=== PATIENT | male | born 1965 | race Caucasian/White ===

== ENCOUNTER 2021-07-14 05:27 | Emergency (ER) | payer OTHER, SELFPAY ==
[2021-07-14] VITALS (51 sets, daily range): BP systolic 101–133; BP diastolic 74–96; PULSE 109–183; RESP 13–27; TEMP 37.1; O2SAT 91–98
--- NOTE | ~2021-07-14 | CT_ITS ---
EXAMINATION: CTA chest PE protocol DATE: 07/14/2021 06:50 INDICATION: Chest pain TECHNIQUE: Computed tomography angiography (CTA) of the chest was performed with 100 mL Omnipaque-350 intravenous contrast timed to evaluate the pulmonary arteries. Coronal maximum intensity projection 3D-reconstructions were created by the technologist. Automated exposure control and iterative reconst ruction technique were employed. Exam dose: 609.00 mGy-cm total exam DLP. COMPARISON: 07/14/2021 portable AP chest at 0544 hours FINDINGS: There is diagnostic contrast enhancement of the pulmonary arteries and no evidence of pulmo nary embolism. No thoracic aortic aneurysm or dissection. Heart size is within normal range. No pericardial or pleur al effusion. No hilar or mediastinal mass lesion or lymphadenopathy. Normal morphology of the adrenal glands. There are patchy groundglass infiltrates of both lower lobes. This is mild discoid atelectasis or sca rring of the middle lobe and lingula. Degenerative disc disease at C5-6 and C6-7. No suspicious osteolytic or osteoblastic lesions. IMPRESSION: No evidence of pulmonary embolism Bilateral lower lobe patchy groundglass infiltrates suggesting bilateral pneumonia or aspiration pneu monitis Reviewed, dictated and finalized at [facility]. Reviewed, dictated and finalized at [facility]. NESS INITIATIVES MANAGER IMPRESSION: No evidence of pulmonary embolism Bilateral lower lobe patchy groundglass infiltrates suggesting bilateral pneumo roderick or aspiration pneumonitis
--- NOTE | ~2021-07-14 | XR_ITS ---
XR chest 1V portable DATE: 07/14/2021 05:59 INDICATION: Chest pain TECHNIQUE: Portable AP chest on 07/2021 at 0549 hours COMPARISON: None FINDINGS: residential monitor device overlies the left chest. Normal heart size. No pleural effusion or pulmonary vascular congestion or pneumothorax. Patchy infiltrate and/atelectasis is suggested in the lower lungs, left greater than right. IMPRESSION: Mild patchy infiltrate in the lower lungs, left greater than right Reviewed, dictated and finalized at location [facility]. MECHANIC
--- NOTE | 2021-07-14 05:33 | ECG_ITS ---
Measurements Intervals [place] Rate: 170 P: [place]: 0 QRS: 17 QRSD: 91 T: 19 QT: 235 QTc: 396 Interpretive Statements ATRIAL FIBRILLATION WITH RAPID VENTRICULAR RESPONSE NONSPECIFIC T-WAVE ABNORMALITY ABNORMAL ECG Electronically Signed On 07-14-2021 10:33:40 BASS FISHER by Ayo Quiroz M.D.
[2021-07-14] MEDS: dilTIAZem 100 MG/100 ML 100 MG/100 ML BAG IV CONT (05:35)
[2021-07-14] MEDS: dilTIAZem HCl INJ 25 MG/5 ML VIAL (05:36)
[2021-07-14] MEDS: fentaNYL CITRATE INJ (*CRX) 100 MCG/2 ML VIAL 50 MCG IV PUSH (05:42)
[2021-07-14 05:48] LABS: Basophils Percent Auto 0.4 % (0.2-1.2); Eosinophils Absolute Auto 0.1 K/mm3 (0-0.3); Eosinophils Percent Auto 1.2 % (0-4.4); Hematocrit 47.2 % (42.0-52.0); Hemoglobin 16.9 g/dL (14.0-18.0); Immature Granulocyte Absolute 0.04 K/mm3 (0.00-0.031); Immature Granulocyte Percent A 0.4 % (0-0.5); Lymphocytes Absolute Auto 1.77 K/mm3 (0.9-3.2); Lymphocytes Percent Auto 15.7 % (18.3-44.2); Mean Corpuscular HGB Conc 35.8 g/dl (32-36); Mean Corpuscular Hemoglobin 34.6 pg (26-34); Mean Corpuscular Volume 96.5 fl (80-100); Mean Platelet Volume 9.9 fl (7.4-10.4); Monocytes Percent Auto 8.5 % (2.6-8.5); Neutrophils Absolute Auto 8.4 K/mm3 (1.3-6.7); Neutrophils Percent Auto 73.8 % (45.5-73.1); Platelet Count Result 154 k/mm3 (150-375); Red Blood Count 4.89 M/mm3 (4.6-6.20); Red Cell Distribution Width 12.7 % (11.5-14.5); White Blood Count 11.3 K/mm3 (4.5-10.0)
[2021-07-14 05:58] LABS: Alanine Aminotransferase 18 U/L (4-50); Albumin Level 4.3 g/dL (3.5-5.1); Alkaline Phosphatase 77 U/L (38-126); Anion Gap 9 mmol/L (8-16); Aspartate Amino Transferase 25 U/L (17-59); Bilirubin,Total 0.9 mg/dL (0.2-1.3); Blood Urea Nitrogen 10 mg/dL (9-20); Calcium 8.1 mg/dL (8.4-10.2); Carbon Dioxide 26 mmol/L (22-30); Chloride 103 mmol/L (98-107); Estimated CRCL calculation 142 ml/min; Estimated Glomerular Filt Rate > 60; Glucose 154 mg/dL (65-110); INR 1.2; Potassium 3.9 mmol/L (3.4-5.0); Prothrombin Time 14.3 Seconds (11.1-14.7); Sodium 138 mmol/L (137-145)
[2021-07-14 05:59] LABS: Partial Thromboplastin Time 33.2 SECONDS (22.3-36.8)
[2021-07-14 06:10] LABS: NT Pro B Type Natriuretic Pept 330 pg/mL (5-100); Troponin I < 0.012 ng/mL (0.000-0.034)
--- NOTE | 2021-07-14 06:25 | ED.ARRPALP ---
HPI - Arrhythmia/Palpitations General Chief Complaint: Arrhythmia/Palpitations <Federico Florentino MD - Last Filed: 07/14/21 06:36> Stated Complaint: VARIABLE AFIB WITH VENTRIC RESPONSE <Federico Florentino MD - Last Filed: 07/14/21 06:36> Time Seen by Provider: 07/14/21 05:27 <Federico Florentino MD - Last Filed: 07/14/21 06:36> History of Present Illness HPI narrative: Patient is a 56-year-old male who presents to the ER with palpitations and chest pain. Patient reports 1 hour prior to arrival he started developing central chest pain. Feels like a cannonball is going off and is chest. Worse with deep breath. Denies shortness of breath. He endorses palpitations and racing heart. Has history of atrial fibrillation and has undergone ablation procedure in the past. He follows with cardiology at the [facility]. No history of myocardial infarction. Patient reports compliance with home Eliquis. <Federico Florentino MD - Last Filed: 07/14/21 06:36> Related Data Home Medications: Home Medications Medication Instructions Recorded Confirmed apixaban [Eliquis] mg 07/14/21 <Federico Florentino MD - Last Filed: 07/14/21 06:36> Allergies/Adverse Reactions: Allergies Allergy/AdvReac Type Severity Reaction Status Date / Time Penicillins Allergy Severe Anaphylactic Verified 07/06/18 15:11 Shock <Federico Florentino MD - Last Filed: 07/14/21 06:36> Review of Systems Review of Systems: All systems reviewed & are unremarkable except as noted in HPI and below <Federico Florentino MD - Last Filed: 07/14/21 06:36> Constitutional: Constitutional: Denies chills, Denies fever(s) and Denies weakness <Federico Florentino MD - Last Filed: 07/14/21 06:36> ENT: Denies nasal congestion and Denies sore throat <Federico Florentino MD - Last Filed: 07/14/21 06:36> Cardiovascular: Cardiovascular: Reports chest pain, Reports rapid heart rate and Denies radiating jaw, neck or arm pain <Federico Florentino MD - Last Filed: 07/14/21 06:36> Respiratory: Respiratory: Denies cough, Denies dyspnea and Denies wheezing <Federico Florentino MD - Last Filed: 07/14/21 06:36> Comments: Pain with deep breath <Federico Florentino MD - Last Filed: 07/14/21 06:36> Gastrointestinal: Gastrointestinal: Denies abdominal pain, Denies nausea and Denies vomiting <Federico Florentino MD - Last Filed: 07/14/21 06:36> Musculoskeletal: Musculoskeletal: Denies back pain and Denies muscle cramps <Federico Florentino MD - Last Filed: 07/14/21 06:36> PMFSH Past Medical History Medical History: Medical History (Updated 07/14/21 @ 17:38 by Jeannette Zambrano MD) Atrial fibrillation Bipolar disorder Hypertension <Federico Florentino MD - Last Filed: 07/14/21 06:36> Surgical History Surgical History: Surgical History (Updated 07/14/21 @ 06:35 by Federico Florentino MD) History of cardiac radiofrequency ablation <Federico Florentino MD - Last Filed: 07/14/21 06:36> Social History Social History: Social History (Updated 07/14/21 @ 06:35 by Federico Florentino MD) Alcohol use details: History of alcohol abuse drinking 1 case a day. <Federico Florentino MD - Last Filed: 07/14/21 06:36> Exam Narrative: GENERAL: Uncomfortable-appearing, well-nourished, and in no acute distress. HEAD: Normocephalic, atraumatic. EYES: PERRL and EOMI. ENT: Mucous membranes moist. CHEST: Clear to auscultation. No respiratory distress. HEART: Tachycardic and irregular regular. Normal peripheral pulses. ABDOMEN: Soft, nontender, nondistended. EXTREMITIES: Normal range of motion. No edema. SKIN: Warm, dry, no rash. NEURO: Alert and oriented x3. PSYCH: Normal mood and affect. <Federico Florentino MD - Last Filed: 07/14/21 06:36> Course Reevaluation(s) Reevaluation #1: Patient had a sinus pause with what appeared to be him trying to convert into normal sinus rhythm before going back into A. fib with RVR. Will obta
[2021-07-14] MEDS: MORPHINE SULFATE INJ (*CRX) 10 MG/ML AMP 4 MG IV PUSH (07:03)
[2021-07-14 07:19] LABS: SARS-CoV-2 RNA PCR Negative
--- NOTE | 2021-07-14 07:19 | PC.NURSE ---
Patient report received from SAIMA Pat. All questions answered and care of patient assumed. Patient currently complaining of 10/10 pain. Patient received IV Morphine 15 minutes ago. Will continue to reassess pain. IV diltiazem infusing at 15 mls/hr. Patient remains in atrial fib with HR currently 110-140s.
--- NOTE | 2021-07-14 07:53 | PC.NURSE ---
Dr. Zambrano at bedside to assess patient.
--- NOTE | 2021-07-14 07:58 | PC.NURSE ---
Pt does not know home meds and doesn't have list. Attempted to call mother and there is no answer.
[2021-07-14] MEDS: ALBUTEROL SULFATE (*SP) AEROSOL 1 PUFF 4 PUFF INHALATION (08:12)
--- NOTE | 2021-07-14 08:15 | PC.NURSE ---
Respiratory at bedside to administer Albuterol inhaler.
--- NOTE | 2021-07-14 09:17 | PC.NURSE ---
Blood cultures obtained and sent to lab for processing.
[2021-07-14 09:21] LABS: Troponin I < 0.012 ng/mL (0.000-0.034)
--- NOTE | 2021-07-14 10:39 | PC.NURSE ---
[facility] accepted transfer to [facility] ETA 12p (noon) Trip # [phone]
[2021-07-14 12:10] LABS: Troponin I < 0.012 ng/mL (0.000-0.034)
[2021-07-14] MEDS: dilTIAZem 100 MG/100 ML 100 MG/100 ML BAG 15 MG IV CONT (12:39)
--- NOTE | 2021-07-14 12:53 | PC.NURSE ---
Patient report provided to [facility] paramedics. Patient placed on stretcher on cardiac monitor technician and transported to [facility] room 610.
== END 2021-07-14 12:55 | disposition short-term general hospital (02) ==
PROVIDERS: Emergency Medicine; Emergency Provider General Practice
DX: I48.91 Unspecified atrial fibrillation (principal); J69.0 Pneumonitis due to inhalation of food and vomit; R07.9 Chest pain, unspecified; Z20.822 Contact with and (suspected) exposure to COVID-19; I10 Essential (primary) hypertension; Z79.01 Long term (current) use of anticoagulants
CPT/HCPCS: 36415; 71045; 71275; 80053; 83880; 84484; 85025; 85610; 85730; 87040; 93005; 96365; 96366; 96367; 96368; 96375; 99285; A9270; C9803; J0131; J1956; J2270; J3010; Q9967; U0003; U0005

== ENCOUNTER 2021-11-28 18:42 | Emergency (ER) | payer OTHER, SELFPAY ==
[2021-11-28] VITALS (35 sets, daily range): BP systolic 118–153; BP diastolic 68–81; PULSE 54–88; RESP 13–25; O2SAT 94–100
--- NOTE | ~2021-11-28 | XR_ITS ---
EXAMINATION: XR chest 1V portable Exam Date/Time: 11/28/2021 18:50 CDT HISTORY: afib, life vest, shocked Comparison: 07/14/2021. RESULT: Lines, tubes, and devices: Loop recorder. Lungs and pleura: Diffuse reticular nodular opacities may reflect bronchiolitis. Cardiomediastinal silhouette: Stable cardiomediastinal silhouette. Other: No acute osseous or upper abdominal finding. IMPRESSION: Pulmonary opacities may represent bronchiolitis, as can be seen with atypical infection, asthma, aspi ration, and small airways disease. Reviewed, dictated and finalized at location [facility]. IMPRESSION: Pulmonary opacities may represent bronchiolitis, as can be seen with atypical i nfection, asthma, aspiration, and small airways disease.
--- NOTE | 2021-11-28 18:47 | ECG_ITS ---
Measurements Intervals [place] Rate: 103 P: 210 [place]: 85 QRS: 35 QRSD: 93 T: 52 QT: 329 QTc: 432 Interpretive Statements SINUS TACHYCARDIA ATRIAL TRIPLETS AND ATRIAL PREMATURE COMPLEXES BASELINE ARTIFACT- I, II, III, AVR, AVF, V4-V6 ABNORMAL ECG Electronically Signed On 11-28-2021 19:32:00 CDT by Bob Mccormick D.O.
[2021-11-28 19:11] LABS: Basophils Percent Auto 0.5 % (0.2-1.2); Eosinophils Absolute Auto 0.1 K/mm3 (0-0.3); Eosinophils Percent Auto 1.3 % (0-4.4); Hematocrit 47.7 % (42.0-52.0); Hemoglobin 17.1 g/dL (14.0-18.0); Immature Platelet Fraction Pct 5.6 % (0.9-11.2); Lymphocytes Absolute Auto 1.78 K/mm3 (0.9-3.2); Lymphocytes Percent Auto 29.7 % (18.3-44.2); Mean Corpuscular HGB Conc 35.8 g/dl (32-36); Mean Corpuscular Hemoglobin 33.7 pg (26-34); Mean Corpuscular Volume 93.9 fl (80-100); Mean Platelet Volume 11.2 fl (7.4-10.4); Monocytes Absolute Auto 0.6 K/mm3 (0.1-0.6); Monocytes Percent Auto 10.4 % (2.6-8.5); Neutrophils Absolute Auto 3.5 K/mm3 (1.3-6.7); Neutrophils Percent Auto 58.1 % (45.5-73.1); Platelet Count Result 134 k/mm3 (150-375); Red Blood Count 5.08 M/mm3 (4.6-6.20); Red Cell Distribution Width 12.7 % (11.5-14.5)
[2021-11-28 19:18] LABS: Alkaline Phosphatase 95 U/L (38-126); Anion Gap 14 mmol/L (8-16); Aspartate Amino Transferase 22 U/L (17-59); Bilirubin,Total 0.8 mg/dL (0.2-1.3); Blood Urea Nitrogen 18 mg/dL (9-20); Calcium 9.2 mg/dL (8.4-10.2); Carbon Dioxide 20 mmol/L (22-30); Chloride 105 mmol/L (98-107); Estimated CRCL calculation 100 ml/min; Estimated Glomerular Filt Rate > 60; Glucose 147 mg/dL (65-110); Lipase 109 U/L (23-300); Potassium 3.4 mmol/L (3.4-5.0); Sodium 139 mmol/L (137-145)
[2021-11-28 19:20] LABS: INR 1.1; Prothrombin Time 13.6 Seconds (11.1-14.7)
[2021-11-28 19:21] LABS: Partial Thromboplastin Time 32.2 SECONDS (22.3-36.8)
[2021-11-28 19:24] LABS: Alanine Aminotransferase 32 U/L (6-50)
[2021-11-28 19:28] LABS: Troponin I < 0.012 ng/mL (0.000-0.034)
[2021-11-28] MEDS: HYDROmorphone HCL INJ (*CRX) 1 MG/ML SYR IV PUSH (19:30)
[2021-11-28 19:46] LABS: Thyroid Stimulating Hormone 0.286 uIU/mL (0.465-4.680)
--- NOTE | 2021-11-28 19:47 | ED.GENADULT ---
HPI - General Adult General Chief complaint: Arrhythmia/Palpitations Stated complaint: LIFE VEST SHOCK/AFIB W RVR Time Seen by Provider: 11/28/21 19:09 History of Present Illness HPI narrative: Patient 56-year-old gentleman who presents the emergency department with chief complaint of dysrhythmia. Patient reports that he had an ablation for atrial fibrillation at the [place] and today had 3 episodes where his LifeVest shocked him. The patient states that he still has pain in his chest after the defibrillator shocked him the patient states that now his heart rate feels like it is back to normal. Patient states he took a metoprolol after he was not converting between shocks reports that he is not on any amiodarone digoxin or calcium channel isai. 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 Nursing and ancillary documentation was reviewed. [facility] Past Medical History Medical History Atrial fibrillation Bipolar disorder Hypertension Surgical History Surgical History History of cardiac radiofrequency ablation Social History Social History Alcohol use details: History of alcohol abuse drinking 1 case a day. Exam Narrative: GENERAL: Well-appearing, well-nourished, and in no acute distress. HEAD: Normocephalic, atraumatic. EYES: PERRLA and EOMI. ENT: Nares clear, no rhinorrhea or epistaxis. Mucous membranes moist. NECK: Supple. CHEST: Clear to auscultation. No respiratory distress. HEART: Regular rate and rhythm. No murmur heard. Normal peripheral pulses. ABDOMEN: Soft, nontender, nondistended, normal active bowel sounds. EXTREMITIES: Normal range of motion. No edema. SKIN: Warm, dry, no rash. Jett from the defibrillator pads present on the chest wall NEURO: No focal deficits. Alert and oriented x3. PSYCH: Normal mood and affect. Course Course Emergency Course: EKG sinus tachycardia rate of 103 with an atrial triplet and atrial PACs Vital Signs Vital signs: Vital Signs Pulse Rate 88 11/28/21 18:46 Respiratory Rate 18 11/28/21 18:46 Blood Pressure 153/79 H 11/28/21 18:46 Pulse Oximetry 100 11/28/21 18:46 Pulse Rate 77 11/29/21 18:42 Respiratory Rate 20 11/29/21 15:32 Blood Pressure 141/81 H 11/29/21 15:32 Pulse Oximetry 98 11/29/21 15:32 Medical Decision Making Vital Signs Vital Signs: Vital Signs Pulse Rate 88 11/28/21 18:46 Respiratory Rate 18 11/28/21 18:46 Blood Pressure 153/79 H 11/28/21 18:46 Pulse Oximetry 100 11/28/21 18:46 Pulse Rate 77 11/29/21 18:42 Respiratory Rate 11/29/21 15:32 Blood Pressure 141/81 H 11/29/21 15:32 Pulse Oximetry 98 11/29/21 15:32 Lab Data Result diagrams: 11/28/21 19:00 11/28/21 19:00 Labs: Lab Results 11/28/21 11/28/21 11/28/21 Range/Units 19:00 19:00 19:00 WBC 6.0 (4.5-10.0) K/mm3 RBC 5.08 (4.6-6.20) M/mm3 Hgb 17.1 (14.0-18.0) g/dL Hct 47.7 (42.0-52.0) % MCV 93.9 (80-100) fl MCH 33.7 (26-34) pg MCHC 35.8 (32-36) g/dl RDW 12.7 (11.5-14.5) % Plt Count 134 L (150-375) k/mm3 MPV 11.2 H (7.4-10.4) fl Immature Gran % (Auto) 0.0 (0-0.5) % Neut % (Auto) 58.1 (45.5-73.1) % Lymph % (Auto) 29.7 (18.3-44.2) % Hale % (Auto) 10.4 H (2.6-8.5) % Eos % (Auto) 1.3 (0-4.
[2021-11-28 20:04] LABS: SARS-CoV-2 RNA PCR Negative
[2021-11-28] MEDS: KCL 20 MEQ/SW 100 ML 100 ML 50 MEQ IVPB (21:40)
[2021-11-28] MEDS: SODIUM CHLORIDE 0.9% IV 1,000 ML 100 ML IV CONT (22:03)
[2021-11-29] VITALS (100 sets, daily range): BP systolic 116–164; BP diastolic 63–85; PULSE 45–109; RESP 9–37; O2SAT 94–100
[2021-11-29] MEDS: LORazepam INJ (*CRX) 2 MG/ML VIAL 1 MG IV PUSH ×2 (01:04→18:45)
--- NOTE | 2021-11-29 01:08 | PC.NURSE ---
pt moved onto hospital bed due to not knowing when a bed at the [facility] will become available.
--- NOTE | 2021-11-29 07:13 | PC.NURSE ---
Assumed care of pt in room 6. Pt resting in bed at this time with no requests. Vitals stable at this time sinus destini.
--- NOTE | 2021-11-29 13:10 | PC.NURSE ---
patient is requesting flomax and dulcolax tab that he takes PRN at home. Dr. Hughes aware
[2021-11-29] MEDS: LORazepam (*CRX) 1 MG TABLET PO (13:19)
[2021-11-29] MEDS: TAMSULOSIN HCL 0.4 MG CAPSULE PO (13:22)
--- NOTE | 2021-11-29 15:13 | PC.NURSE ---
lita martinez customer engagement representative with [employer] called regarding patient's LifeVest.
--- NOTE | 2021-11-29 18:01 | PC.NURSE ---
[employer] customer field representative here to interrogate pt's device
[2021-11-29] MEDS: ASPIRIN 81 MG CHEWABLE TABLET PO (18:16)
--- NOTE | 2021-11-29 18:24 | PC.NURSE ---
lifevest being interrogated at this time from [employer]
[2021-11-29] MEDS: METOPROLOL TARTRATE 25 MG TABLET (18:42)
--- NOTE | 2021-11-29 19:16 | PC.NURSE ---
tressa with lifevest here and she has replaced his lifevest and it is working correctly
--- NOTE | 2021-11-29 20:40 | PC.NURSE ---
patient has loop recorder
[2021-11-29] MEDS: MELATONIN 5 MG TABLET PO (21:07)
[2021-11-29] MEDS: BISACODYL 5 MG TABLET EC PO (21:07)
[2021-11-29] MEDS: APIXABAN 5 MG TABLET PO (21:07)
--- NOTE | 2021-11-29 23:04 | PC.NURSE ---
called the following facilities for possible transfer. @2049- [facility] @[facility]- [facility] has a waitlist of a week or more @2101- [facility] has a 9 day waitlist @2103- [facility] not accepting @2141- [facility] accepting @[facility]36- [facility] - advised by Sylvie to call Utilization Review at 8 am
[2021-11-30] VITALS (30 sets, daily range): BP systolic 121–129; BP diastolic 81–84; PULSE 51–72; RESP 9–22; O2SAT 94–99
[2021-11-30] MEDS: LORazepam (*CRX) 1 MG TABLET PO (10:20)
[2021-11-30] MEDS: TAMSULOSIN HCL 0.4 MG CAPSULE PO (10:20)
[2021-11-30] MEDS: APIXABAN 5 MG TABLET PO (10:21)
[2021-11-30] MEDS: BISACODYL 5 MG TABLET EC PO (13:31)
[2021-11-30] MEDS: METOPROLOL TARTRATE 50 MG TAB 25 MG PO (14:16)
== END 2021-11-30 16:06 ==
PROVIDERS: Emergency Medicine; Physician Assistant; Emergency Provider General Practice
DX: R00.0 Tachycardia, unspecified (principal); I48.91 Unspecified atrial fibrillation; Z95.810 Presence of automatic (implantable) cardiac defibrillator; I10 Essential (primary) hypertension; Z79.01 Long term (current) use of anticoagulants; Z20.822 Contact with and (suspected) exposure to COVID-19; I49.1 Atrial premature depolarization
CPT/HCPCS: 36415; 71045; 80053; 83690; 83735; 84443; 84484; 85025; 85055; 85610; 85730; 93005; 96361; 96365; 96366; 96375; 96376; 99285; A9270; C9803; J1170; J2060; J3480; J7030; U0003; U0005

== ENCOUNTER 2022-08-11 21:30 | Emergency (ER) | payer OTHER, SELFPAY ==
[2022-08-11] VITALS (17 sets, daily range): BP systolic 124–139; BP diastolic 72–77; PULSE 59–67; RESP 16–22; TEMP 36.5; O2SAT 94–100
--- NOTE | ~2022-08-11 | XR_ITS ---
EXAMINATION: XR chest 2V DATE: 08/11/2022 22:59 INDICATION: Left chest pain. TECHNIQUE: Frontal and lateral views of the chest were obtained. COMPARISON: Chest single view 11/28/2021, chest CT 08/11/2022 FINDINGS: There is mild atelectasis at the lung bases. No pleural effusion or pneumothorax. Cardiomeg flower is noted. There is a left chest wall pacer with leads in the right atrium and right ventricle. Th ere is pneumatosis in hepatic flexure of the colon. IMPRESSION: 1. Cardiomegaly. 2. Pneumatosis in hepatic flexure of the colon. Reviewed, dictated and finalized at location [facility].
--- NOTE | ~2022-08-11 | CT_ITS ---
EXAMINATION: CTA chest PE protocol DATE: 08/11/2022 23:32 INDICATION: Chest pain. TECHNIQUE: Computed tomography angiography (CTA) of the chest was performed with 100 mL Omnipaque-350 intravenous contrast timed to evaluate the pulmonary arteries. Coronal maximum intensity projection 3D-reconstructions were created by the technologist. Automated exposure control and iterative reconst ruction technique were employed. The dose-length product was 700.61 mGy-cm. COMPARISON: Chest CT 07/14/2021 FINDINGS: The dominant lungs demonstrate mild atelectasis with a lower lung predominance. No pleural effusion. Cardiomegaly is noted. There are coronary artery calcifications. There is a small pericardi al effusion. There is a left chest wall pacer with leads in the right atrium and right ventricle. The re is no pulmonary embolus. There is pneumatosis involving hepatic flexure of the colon. There is mil d thoracic spondylosis. IMPRESSION: 1. No pulmonary embolus. 2. Small pericardial effusion, new from 07/14/2021. 2. Pneumatosis involving hepatic flexure of the colon, which may be a sign of infarct or ischemia. CT abdomen and pelvis with contrast is recommended. I called this result to Nanda Cortes, the ignacia ent's nurse at [facility]. Reviewed, dictated and finalized at location [facility]. IMPRESSION: 1. No pulmonary embolus. 2. Small pericardial effusion, new from 07/14/2021. 2. Pneumatosis involving hepatic flexure of the colon, which may be a sign of i nfarct or ischemia. CT abdomen and pelvis with contrast is recommended. I storm d this result to Nanda Cortes, the patient's nurse at [facility].
--- NOTE | 2022-08-11 21:32 | ECG_ITS ---
Measurements Intervals [place] Rate: 67 P: 31 NM: 227 QRS: -9 QRSD: 84 T: 27 QT: 379 QTc: 401 Interpretive Statements SINUS RHYTHM WITH FIRST DEGREE AV BLOCK LEFT ATRIAL ENLARGEMENT INFERIOR INFARCT, PROBABLY RECENT Electronically Signed On 08-12-2022 12:55:06 CDT by Herman Amaya M.D.
[2022-08-11 21:53] LABS: Basophils Percent Auto 0.3 % (0.2-1.2); Eosinophils Percent Auto 0.1 % (0-4.4); Hematocrit 47.8 % (42.0-52.0); Hemoglobin 16.6 g/dL (14.0-18.0); Immature Granulocyte Absolute 0.03 K/mm3 (0.00-0.031); Immature Granulocyte Percent A 0.3 % (0-0.5); Immature Platelet Fraction Pct 5.3 % (0.9-11.2); Lymphocytes Absolute Auto 0.77 K/mm3 (0.9-3.2); Lymphocytes Percent Auto 8.5 % (18.3-44.2); Mean Corpuscular HGB Conc 34.7 g/dl (32-36); Mean Corpuscular Hemoglobin 34.1 pg (26-34); Mean Corpuscular Volume 98.2 fl (80-100); Mean Platelet Volume 10.1 fl (7.4-10.4); Monocytes Absolute Auto 0.9 K/mm3 (0.1-0.6); Monocytes Percent Auto 9.7 % (2.6-8.5); Neutrophils Absolute Auto 7.4 K/mm3 (1.3-6.7); Neutrophils Percent Auto 81.1 % (45.5-73.1); Platelet Count Result 145 k/mm3 (150-375); Red Blood Count 4.87 M/mm3 (4.6-6.20); Red Cell Distribution Width 13.1 % (11.5-14.5); White Blood Count 9.1 K/mm3 (4.5-10.0)
[2022-08-11 22:02] LABS: INR 1.2; Prothrombin Time 14.2 Seconds (11.1-14.7)
[2022-08-11 22:03] LABS: Partial Thromboplastin Time 34.8 SECONDS (22.3-36.8)
[2022-08-11 22:05] LABS: Alanine Aminotransferase 29 U/L (6-50); Albumin Level 4.5 g/dL (3.5-5.1); Alkaline Phosphatase 73 U/L (38-126); Anion Gap 5 mmol/L (8-16); Aspartate Amino Transferase 23 U/L (17-59); Bilirubin,Total 1.7 mg/dL (0.2-1.3); Blood Urea Nitrogen 17 mg/dL (9-20); Calcium 8.8 mg/dL (8.4-10.2); Carbon Dioxide 33 mmol/L (22-30); Chloride 98 mmol/L (98-107); Estimated CRCL calculation 99 ml/min; Estimated Glomerular Filt Rate > 60; Glucose 103 mg/dL (65-110); Lipase 43 U/L (23-300); Potassium 3.9 mmol/L (3.4-5.0); Sodium 136 mmol/L (137-145)
[2022-08-11] MEDS: fentaNYL CITRATE INJ (*CRX) 100 MCG/2 ML VIAL 50 MCG IV PUSH (22:15)
[2022-08-11 22:16] LABS: Troponin I < 0.012 ng/mL (0.000-0.034)
--- NOTE | 2022-08-11 22:20 | ED.CHESTPAIN ---
HPI - Chest Pain General Chief Complaint: Chest Pain <BEA Estes Last Filed: 08/12/22 05:19> Stated Complaint: chest pain - concerned about PPM wires <BEA Estes Last Filed: 08/12/22 05:19> Time Seen by Provider: 08/11/22 21:56 <BEA Estes Last Filed: 08/12/22 05:19> History of Present Illness HPI narrative: Patient is a 57-year-old male with a history of A-fib here for evaluation of chest pain today. Patient states the pain is in the center of his chest and occasionally moves down his left arm. States it is severe in nature, coming in waves. He is concerned over his pacemaker and believes that it is dislodged due to the severity and location of the pain although he denies any trauma to the chest. His pacemaker has not fired. He follows with cardiology at the [place]. He had a cardiac catheterization 2 years ago and he has never had stents placed. <BEA Estes Last Filed: 08/12/22 05:19> Related Data Home Medications: Home Medications Medication Instructions Recorded Confirmed apixaban 5 mg tablet (Eliquis) mg 07/14/21 <BEA Estes Last Filed: 08/12/22 05:19> Allergies/Adverse Reactions: Allergies Allergy/AdvReac Type Severity Reaction Status Date / Time Penicillins Allergy Severe Anaphylactic Verified 08/11/22 21:30 Shock <BEA Estes Last Filed: 08/12/22 05:19> Review of Systems Review of Systems: Gen.: Denies fevers or chills Eyes: Denies eye pain or visual change ENT: Denies congestion Respiratory: Denies shortness of breath or cough CV: Reports chest pain GI: Denies abdominal pain nausea, emesis or diarrhea denies burning, urgency, frequency or hematuria Musculoskeletal: Denies back pain or muscle pain Neuro: Denies numbness, tingling, weakness or focal weakness Skin: Denies rash Except as documented, all other systems reviewed and negative <SANJAY EstesC - Last Filed: 08/12/22 05:19> [facility] Past Medical History Medical History: Medical History Atrial fibrillation Bipolar disorder Hypertension <Hawa Perez PA-C - Last Filed: 08/12/22 05:19> Surgical History Surgical History: Surgical History History of cardiac radiofrequency ablation <Hawa Perez PA-C - Last Filed: 08/12/22 05:19> Social History Social History: Social History Alcohol use details: History of alcohol abuse drinking 1 case a day. <Hawa Perez PA-C - Last Filed: 08/12/22 05:19> Exam Narrative: APPEARANCE: Well appearing, no pain in distress, well-nourished. Head: Normocephalic and atraumatic. EYES: PERRLA/EOMI, conjunctivae clear NOSE: No nasal drainage EARS: External ear normal in appearance THROAT: Oropharynx is clear. Mucous membranes are moist. NECK: Supple. No adenopathy, no masses. RESPIRATORY: Airway patent, respirations nonlabored. Clear to auscultation bilaterally, no rales, rhonchi, wheezing. CARDIOVASCULAR: Pacemaker in place to left anterior chest. Regular rate and rhythm without murmurs, rubs, or gallops. ABDOMINAL: Normoactive bowel sounds. Soft, nontender, nondistended. No rebound tenderness or guarding. MUSCULOSKELETAL: Extremities are warm and well-perfused. Moves all extremities well. No edema. NEURO: Normal speech. No focal neurologic deficits. SKIN: Skin is warm and dry. No rashes. PSYCHIATRIC: Normal affect/mood.. <Hawa Perez PA-C - Last Filed: 08/12/22 05:19> Course RADIOLOGICAL TECHNICIAN/PA Physician Supervision For this patient encounter, I reviewed the RADIOLOGICAL TECHNICIAN or PA documentation, treatment plan, and medical decision making; and I had [id number] time with this patient. <Eloy Drummond MD - Last Filed: 08/12/22
--- NOTE | 2022-08-11 22:26 | ECG_ITS ---
Measurements Intervals [place] Rate: 58 P: 37 [place]: 226 QRS: -9 QRSD: 81 T: 29 QT: 385 QTc: 381 Interpretive Statements SINUS BRADYCARDIA WITH FIRST DEGREE AV BLOCK INFERIOR INFARCT, AGE INDETERMINATE, PROBABLY RECENT Electronically Signed On 08-12-2022 12:58:00 CDT by Herman Amaya M.D.
[2022-08-11 23:36] LABS: NT Pro B Type Natriuretic Pept 456 pg/mL (19.9-100)
[2022-08-12] VITALS (45 sets, daily range): BP systolic 88–124; BP diastolic 47–80; PULSE 51–72; RESP 10–33; O2SAT 93–97
[2022-08-12] MEDS: MORPHINE SULFATE (*CRX) 4 MG/ML INJ IV PUSH ×2 (00:01→06:15)
--- NOTE | 2022-08-12 00:53 | PC.NURSE ---
[facility] & [facility] (direct #[phone]). Beds are available. Patient needs Covid test, fax chart to [phone]. They will call back once doctor reviews chart.
[2022-08-12 01:57] LABS: Troponin I < 0.012 ng/mL (0.000-0.034)
[2022-08-12 03:20] LABS: Influenza A QL RT-PCR Negative (Negative); Influenza B QL RT-PCR Negative (Negative); SARS-CoV-2 RNA PCR Negative
--- NOTE | 2022-08-12 03:32 | PC.NURSE ---
Faxed chart and called/informed Todd. ASIA
[2022-08-12] MEDS: polyethylene glycoL 3350 17 GM POWD.PACK PO (04:00)
[2022-08-12] MEDS: SODIUM CHLORIDE 0.9% IV 1,000 ML 30 ML IV CONT (05:20)
--- NOTE | 2022-08-12 06:17 | PC.NURSE ---
attempted phone calls with [facility]; advised RN is not ready for report and to call back.
--- NOTE | 2022-08-12 06:43 | PC.NURSE ---
ambulance transport predicted [phone]
== END 2022-08-12 08:00 ==
PROVIDERS: Emergency Medicine; Emergency Provider Physician Assistant
DX: R07.9 Chest pain, unspecified (principal); I48.91 Unspecified atrial fibrillation; I10 Essential (primary) hypertension; Z79.01 Long term (current) use of anticoagulants; Z95.0 Presence of cardiac pacemaker; Z20.822 Contact with and (suspected) exposure to COVID-19
CPT/HCPCS: 36415; 71046; 71275; 80053; 83690; 83735; 83880; 84484; 85025; 85055; 85610; 85730; 87636; 93005; 96361; 96374; 96376; 99285; J2270; J3010; J7030; Q9967